=== PATIENT | female | born 1980 | race Caucasian/White ===

== ENCOUNTER 2017-09-04 05:58 | Day surgery (SDC) | payer OTHER ==
[~2017-09-04] VITALS: Ht 165.1 cm; Wt 56.7 kg
[2017-09-04] MEDS ORDERED: CEPH250C16 PO (08:14)
[2017-09-04] MEDS ORDERED: IBUP-2213 PO (08:14)
[2017-09-04] MEDS ORDERED: IBUPROFEN 800 MG TAB PO PRN (08:30)
[2017-09-04] MEDS ORDERED: ONDANSETRON 4 MG/2 ML VIAL IVP PRN ×2 (08:30→09:40)
[2017-09-04] MEDS ORDERED: MORPHINE SULFATE 4 MG/ML SYR IM/IVP PRN (08:30)
[2017-09-04] MEDS ORDERED: ACETAMINOPHEN/CODEINE 300/30MG 1 TAB PO PRN (08:30)
[2017-09-04] MEDS ORDERED: LIDOCAINE 2% 100 MG/5 ML SYR IVP ONE ×2 (09:00→09:49)
[2017-09-04] MEDS ORDERED: SEVOFLURANE 250 ML BTL INH ONE ×2 (09:00→09:49)
[2017-09-04] MEDS ORDERED: PROPOFOL 200 MG/20 ML VIAL IV ONE ×2 (09:00→09:49)
[2017-09-04] MEDS ORDERED: SCOPOLAMINE 1.5 MG/72 HR PATCH TD ONE (09:14)
[2017-09-04] MEDS ORDERED: MIDAZOLAM 2 MG/2 ML VIAL ONE (09:18)
[2017-09-04] MEDS ORDERED: HYDROmorphone 1 MG/ML AMP IVP PRN (09:40)
== END 2017-09-04 11:00 | disposition home or self-care (01) ==
LOC: MDS 05:58 → MMU 05:59 → MDS 11:00
PROVIDERS: ATTEND Obstetrics & Gynecology
DX: N87.0 Mild cervical dysplasia (principal); G43.909 Migraine, unspecified, not intractable, without status migrainosus; E66.3 Overweight; J45.909 Unspecified asthma, uncomplicated; K21.9 Gastro-esophageal reflux disease without esophagitis; I12.9 Hypertensive chronic kidney disease with stage 1 through stage 4 chronic kidney disease, or unspecified chronic kidney disease; N18.9 Chronic kidney disease, unspecified; E11.22 Type 2 diabetes mellitus with diabetic chronic kidney disease; F03.90 Unspecified dementia, unspecified severity, without behavioral disturbance, psychotic disturbance, mood disturbance, and anxiety; G40.909 Epilepsy, unspecified, not intractable, without status epilepticus; F17.210 Nicotine dependence, cigarettes, uncomplicated; Z98.890 Other specified postprocedural states; Z87.442 Personal history of urinary calculi; Z90.49 Acquired absence of other specified parts of digestive tract
CPT/HCPCS: 57522; J2001; J2250; J2704; J7120; J7030